=== PATIENT | female | born 1980 | race Two or more races ===

== ENCOUNTER 2019-01-20 03:51 | Observation (INO) | payer OTHER ==
--- NOTE | 2019-01-20 04:32 | PDOC ---
History of Present Illness - General Chief Complaint: Syncope/Near Syncope Stated Complaint: PAIN IN BOTH HANDS, PASSED OUT TWICE Time Seen by Provider: 01/20/19 04:18 History Source: Patient Exam Limitations: No Limitations - History of Present Illness Initial Comments: 01/20/19 04:35 This is a 38 her old female who has history of pain in her hands secondary to carpal tunnel syndrome and she got up to go to the bathroom early this morning when she was in the bathroom she reached her hands above her head to call her hair with her fingers and the next thing she knew she woke up on the floor. Her said he heard a bang and found her lying on the floor. Patient helped her up and tried to get her back to bed where she again passed out. Patient said she did not feel dizzy, lightheaded or did not know she was going down and she said she just woke up on the floor with her there. Patient denies history of passing out in the past. Allergies: None Past Medical History: none Social history: Lives with family. No smoking. No alcohol. No illicit drugs. Surgical history: None General: No fevers or chills, no weakness, no weight loss HEENT: No change in vision. No sore throat,. No ear pain CardioVascular: no chest discomfort. No shortness of breath Respiratory:No cough, or wheezing. Gastrointestinal: no nausea, vomiting, diarrhea or constipation, No rectal bleeding Genitourinary: No dysuria, hematuria, or frequency Musculoskeletal: No joint or muscle pain or swelling Neurologic: No headache, vertigo, syncope as per history of present illness Psychiatric: nor depression Skin: No rashes or easy bruising Endocrine: no increased thirst or abnormal weight change Allergic: no skin or latex allergy All other systems reviewed and normal Exam: General: Well-nourished well-developed individual, no acute distress HEENT: Throat: Normal, tonsils normal, no erythema or exudate Neck: Supple, no meningeal signs, no lymphadenopathy Eyes::Pupils equal reactive and round, extraocular motion intact Chest: Nontender to palpation Cardiac: S1-S2 normal, regular rate and rhythm, no murmurs rubs or gallops Respiratory: Lungs clear to auscultation bilateral Abdomen: Soft, nondistended, normal bowel sounds, there is no tenderness on palpation diffusely Extremities: Warm, dry, no cyanosis, clubbing, or edema Skin: No rashes Neuro: Alert and oriented x3, CN II - XII intact, nonfocal exam with normal strength, normal sensation, normal reflexes, normal gait, Psych: Normal mood and affect Assessment and plan: This is a 38-year-old female who had a syncopal event 2 prior to arrival. Patient is otherwise healthy. Syncope workup initiated including labs, EKG and head CT. EKG showed normal sinus rhythm at a rate of 79, normal intervals no acute ST-T wave changes normal EKG. 01/20/19 05:56 Patient's workup was normal, her head CT was normal, EKG was normal, labs were normal, cardiac enzymes are normal. It is unclear as to why patient had syncopal episodes [address] her in an observation bed for further evaluation and workup. Past History - Past Medical History Allergies/Adverse Reactions: Allergies Allergy/AdvReac Type Severity Reaction Status Date / Time No Known Allergies Allergy Verified 01/20/19 03:52 Home Medications: Ambulatory Orders NK [No Known Home Medication] 01/20/19 COPD: No Other medical history: DENIES - Suicide/Smoking/Psychosocial Hx Smoking History: Never smoked Have you smoked in the past 12 months: No Information on smoking cessation initiated: No Hx Alcohol Use: No Drug/Substance Use Hx: No *Physical Exam - Vital Signs Last Vital Signs Temp Pulse Resp BP Pulse Ox 98.6 F 77 18 126/91 100 01/20/19 03:54 01/20/19 03:54 01/20/19 03:54 01/20/19 03:54 01/20/19 03:54 Moderate Sedation - Procedure Monitoring Vital Signs: Procedure Monitoring Vital Signs Temperature 98.6 F 01/20/19 03:54 Pulse Rate 77 01/20/19 03:54 Respiratory Rate 18 01/20/19 03:54 Blood Pressure 126/91 01/20/19 03:54 O2 Sat by Pulse Oximetry (%) 100 01/20/19 03:54 ED Treatment Course - LABORATORY CBC & Chemistry Diagram: 01/20/19 04:37 01/20/19 04:37 - ADDITIONAL ORDERS Additional order review: Laboratory Results 01/20/19 01/20/19 01/20/19 04:37 04:37 04:37 Sodium 138 Potassium 3.7 Chloride 105 Carbon Dioxide 27 Anion Gap 5 L BUN 11 Creatinine 0.7 Creat Clearance w eGFR 94.68 Random Glucose 89 Calcium 8.2 L Total Bilirubin 0.2 AST 38 H ALT 63 H Alkaline Phosphatase 85 Creatine Kinase Troponin I Total Protein 6.6 Albumin 3.2 L Urine Color Ltyellow Urine Appearance Clear Urine pH 6.0 Ur Specific [place] 1.015 Urine Protein Negative Urine Glucose (UA) Negative Urine Ketones Negative Urine Blood Negative Urine Nitrite Negative Urine Bilirubin Negative Urine Urobilinogen Negative Ur Leukocyte Esterase Negative Urine HCG, Qual Negative 01/20/19 01/20/19 04:35 04:35 Sodium Potassium Chloride Carbon Dioxide Anion Gap BUN Creatinine Creat Clearance w eGFR Random Glucose Calcium Total Bilirubin AST ALT Alkaline Phosphatase Creatine Kinase 64 Troponin I < 0.02 Total Protein Albumin Urine Color Urine Appearance Urine pH Ur Specific [place] Urine Protein Urine Glucose (UA) Urine Ketones Urine Blood Urine Nitrite Urine Bilirubin Urine Urobilinogen Ur Leukocyte Esterase Urine HCG, Qual 01/20/19 04:37 RBC 3.78 MCV 80.4 MCHC 34.9 RDW 13.5 MPV 8.3 Neutrophils % 53.0 Lymphocytes % 35.0 Monocytes % 8.4 Eosinophils % 3.1 Basophils % 0.5 - RADIOLOGY Radiology Studies Ordered: Category Date Time Status HEAD CT WITHOUT CONTRAST [CT] Stat CT Scan 01/20/19 04:33 Taken CHEST X-RAY PORTABLE* [RAD] Stat Radiology 01/20/19 05:55 Ordered - Medications Given in the ED: ED Medications Discontinued Medications Generic Name Dose Route Start Last Admin Trade Name Freq PRN Reason Stop Dose Admin Sodium Chloride 1,000 mls @ 1,000 mls/hr 01/20/19 04:34 01/20/19 04:44 Normal Saline - IV 01/20/19 05:33 1,000 mls/hr .Q1H ONE Administration *DC/Admit/Observation/Transfer Diagnosis at time of Disposition: Syncope Qualifiers: Syncope type: unspecified Qualified Code(s): R55 - Syncope and collapse - Discharge Dispostion Condition at time of disposition: Stable Decision to Admit order: Yes Decision to Admit order Date/Time: Decision to Admit Order Category Date Time Status Decision to Admit to Hospital Routine Admission 01/20/19 05:57 Active - Referrals - Patient Instructions - Post Discharge Activity
[2019-01-20] MEDS ORDERED: SODIUM CHLORIDE 1,000 ML IV ONE (04:34)
[2019-01-20 05:15] LABS: BASO % 0.5 % (0-2.0); EOS % 3.1 % (0-4.5); HEMATOCRIT 30.4 % (32.4-45.2); HEMOGLOBIN 10.6 GM/dL (10.7-15.3); MCH 28.1 pg (25.7-33.7); MCHC 34.9 g/dl (32.0-36.0); MEAN CELL VOLUME 80.4 fl (80-96); MEAN PLT VOLUME 8.3 fl (7.5-11.1); MONO % 8.4 % (3.8-10.2); PLATELET COUNT 251 K/MM3 (134-434); RBC 3.78 M/mm3 (3.60-5.2); RDW 13.5 % (11.6-15.6); WHITE BLOOD COUNT 3.9 K/mm3 (4.0-10.0)
[2019-01-20 05:18] LABS: URINE APPEARANCE CLEAR; URINE BILIRUBIN NEGATIVE (<2.0 mg/dL); URINE COLOR LTYELLOW; URINE GLUCOSE (UA) NEGATIVE (NEGATIVE); URINE KETONE NEGATIVE (NEGATIVE); URINE LEUK ESTERASE NEGATIVE (NEGATIVE); URINE NITRITE NEGATIVE (NEGATIVE); URINE PROTEIN NEGATIVE (NEGATIVE); URINE UROBILINOGEN NEGATIVE mg/dL (0.2-1.0)
[2019-01-20 05:39] LABS: ALBUMIN 3.2 g/dl (3.4-5.0); ALK PHOS 85 U/L (45-117); ANION GAP 5 MMOL/L (8-16); BILIRUBIN,TOTAL 0.2 mg/dL (0.2-1); BLOOD UREA NITROGEN 11 mg/dL (7-18); CALCIUM 8.2 mg/dL (8.5-10.1); CHLORIDE 105 mmol/L (98-107); CO2 27 mmol/L (21-32); CREATININE 0.7 mg/dL (0.55-1.3); GLUCOSE,RANDOM 89 mg/dL (74-106); POTASSIUM 3.7 mmol/L (3.5-5.1); SGOT/AST 38 U/L (15-37); SGPT/ALT 63 U/L (13-61); SODIUM 138 mmol/L (136-145); TOT PROT 6.6 g/dl (6.4-8.2)
[2019-01-20 08:14] VITALS: BMI 23.7
--- NOTE | 2019-01-20 09:17 | HP ---
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 Patient awoke at ~3am to urinate. She urinated, stood up, and was fixing her hair when she suddenly very weak. The next thing she knew she was waking up in the tub, having fallen into the tub when she lost consciousness. Her heard the noise and got her up from the tub. As he was walking her out of the tub the patient looked at herself in the mirror and noticed she looked pale. She was also sweating. On the way back to the bed the patient again lost consciousness. brought her to the ED. Patient is health conscious is very active and usually drinks 3L of water per day. Yesterday she was very busy with her children and housecleaning and she drank only 2 cups of water. She felt thirsty going to bed. ER course was notable for: (1) Vital signs stable (2) CT head unremarkable (3) Troponin neg x 1 Recent Travel: No PAST MEDICAL HISTORY: Bilateral carpal tunnel syndrome PAST SURGICAL HISTORY: Social History: lives with Smoking: no Alcohol: no Drugs: no Family History: Allergies No Known Allergies Allergy (Verified 01/20/19 03:52) HOME MEDICATIONS: Home Medications Medication Instructions Recorded NK [No Known Home Medication] 01/20/19 REVIEW OF SYSTEMS CONSTITUTIONAL: Absent: fever, chills, diaphoresis, generalized weakness, malaise, loss of appetite, weight change HEENT: Absent: rhinorrhea, nasal congestion, throat pain, throat swelling, difficulty swallowing, mouth swelling, ear pain, eye pain, visual changes CARDIOVASCULAR: +syncope x 2 with prodrome of weakness Absent: chest pain, syncope, palpitations, irregular heart rate, lightheadedness , peripheral edema RESPIRATORY: Absent: cough, shortness of breath, dyspnea with exertion, orthopnea, wheezing, stridor, hemoptysis GASTROINTESTINAL: Absent: abdominal pain, abdominal distension, nausea, vomiting, diarrhea, constipation, melena, hematochezia GENITOURINARY: +dehydrated, thirst Absent: dysuria, frequency, urgency, hesitancy, hematuria, flank pain, genital pain MUSCULOSKELETAL: Absent: myalgia, arthralgia, joint swelling, back pain, neck pain SKIN: Absent: rash, itching, pallor HEMATOLOGIC/IMMUNOLOGIC: Absent: easy bleeding, easy bruising, lymphadenopathy, frequent infections ENDOCRINE: Absent: unexplained weight gain, unexplained weight loss, heat intolerance, cold intolerance NEUROLOGIC: Absent: headache, focal weakness or paresthesias, dizziness, unsteady gait, seizure, mental status changes, bladder or bowel incontinence PSYCHIATRIC: Absent: anxiety, depression, suicidal or homicidal ideation, hallucinations. PHYSICAL EXAMINATION Vital Signs - 24 hr 01/20/19 01/20/19 03:54 08:00 Temperature 98.6 F 98.6 F Pulse Rate 77 77 Respiratory 18 18 Rate Blood Pressure 126/91 126/91 O2 Sat by Pulse 100 99 Oximetry (%) GENERAL: Awake, alert, and fully oriented, in no acute distress. HEAD: Normal with no signs of trauma. EYES: Pupils equal, round and reactive to light, extraocular movements intact, sclera anicteric, conjunctiva clear. No lid lag. EARS, NOSE, THROAT: Ears normal, nares patent, oropharynx clear without exudates. Moist mucous membranes. NECK: Normal range of motion, supple without lymphadenopathy, JVD, or masses. LUNGS: Breath sounds equal, clear to auscultation bilaterally. No wheezes, and no crackles. No accessory muscle use. HEART: Regular rate and rhythm, normal S1 and S2 without murmur, rub or gallop. ABDOMEN: Soft, nontender, not distended, normoactive bowel sounds, no guarding, no rebound, no masses. No hepatomegaly or splenomegaly. MUSCULOSKELETAL: Normal range of motion at all joints. No bony deformities or tenderness. No CVA tenderness. UPPER EXTREMITIES: 2+ pulses, warm, well-perfused. No cyanosis. No clubbing. No peripheral edema. LOWER EXTREMITIES: 2+ pulses, warm, well-perfused. No calf tenderness. No peripheral edema. NEUROLOGICAL: Cranial nerves II-XII intact. Normal speech. Normal gait. PSYCHIATRIC: Cooperative. Good eye contact. Appropriate mood and affect. SKIN: Warm, dry, normal turgor, no rashes or lesions noted, normal capillary refill. Laboratory Results - last 24 hr 01/20/19 01/20/19 01/20/19 04:35 04:35 04:37 WBC 3.9 L RBC 3.78 Hgb 10.6 L Hct 30.4 L MCV 80.4 MCH 28.1 MCHC 34.9 RDW 13.5 Plt Count 251 MPV 8.3 Absolute Neuts (auto) 2.1 Neutrophils % 53.0 Lymphocytes % 35.0 Monocytes % 8.4 Eosinophils % 3.1 Basophils % 0.5 Nucleated RBC % 0 Sodium Potassium Chloride Carbon Dioxide Anion Gap BUN Creatinine Creat Clearance w eGFR Random Glucose Calcium Total Bilirubin AST ALT Alkaline Phosphatase Creatine Kinase 64 Troponin I < 0.02 Total Protein Albumin Urine Color Urine Appearance Urine pH Ur Specific [place] Urine Protein Urine Glucose (UA) Urine Ketones Urine Blood Urine Nitrite Urine Bilirubin Urine Urobilinogen Ur Leukocyte Esterase Urine HCG, Qual 01/20/19 01/20/19 01/20/19 04:37 04:37 04:37 WBC RBC Hgb Hct MCV MCH MCHC RDW Plt Count MPV Absolute Neuts (auto) Neutrophils % Lymphocytes % Monocytes % Eosinophils % Basophils % Nucleated RBC % Sodium 138 Potassium 3.7 Chloride 105 Carbon Dioxide 27 Anion Gap 5 L BUN 11 Creatinine 0.7 Creat Clearance w eGFR 94.68 Random Glucose 89 Calcium 8.2 L Total Bilirubin 0.2 AST 38 H ALT 63 H Alkaline Phosphatase 85 Creatine Kinase Troponin I Total Protein 6.6 Albumin 3.2 L Urine Color Ltyellow Urine Appearance Clear Urine pH 6.0 Ur Specific [place] 1.015 Urine Protein Negative Urine Glucose (UA) Negative Urine Ketones Negative Urine Blood Negative Urine Nitrite Negative Urine Bilirubin Negative Urine Urobilinogen Negative Ur Leukocyte Esterase Negative Urine HCG, Qual Negative ASSESSMENT/PLAN: 38 year-old female with a PMH significant for bilateral carpal tunnel syndrome. Placed on observation for syncope x 2. Syncope --troponins neg x 2, third pending --ECG: not suggestive of ischemic event --CXR: unremarkable --CT head: unremarkable --US carotids: unremarkable --Echo: pending --telemetry monitoring --orthostatics --TSH pending --cardiology consult Visit type - Emergency Visit Emergency Visit: Yes ED Registration Date: 01/20/19 Care time: The patient presented to the Emergency Department on the above date and was hospitalized for further evaluation of their emergent condition. - New Patient This patient is new to me today: Yes Date on this admission: 01/20/19 - Critical Care Critical Care patient: No
[2019-01-20 10:41] LABS: MAGNESIUM 1.9 mg/dL (1.8-2.4); PHOSPHOROUS 2.9 mg/dl (2.5-4.9)
--- NOTE | 2019-01-20 12:02 | CON.CARD ---
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 she was in the bathroom she reached her hands above her head to call her hair with her fingers and the next thing she knew she woke up on the floor. Her said he heard a bang and found her lying on the floor. Patient helped her up and tried to get her back to bed where she again passed out. Patient said she did not feel dizzy, lightheaded or did not know she was going down and she said she just woke up on the floor with her there. Patient denies history of passing out in the past. - History Source History Provided By: Patient, Medical Record - Past Medical History ...LMP: 01/18/19 ...: No - Alcohol/Substance Use Hx Alcohol Use: No - Smoking History Smoking history: Never smoked Have you smoked in the past 12 months: No Aproximately how many cigarettes per day: 0 Home Medications - Allergies Allergies/Adverse Reactions: Allergies Allergy/AdvReac Type Severity Reaction Status Date / Time No Known Allergies Allergy Verified 01/20/19 03:52 - Home Medications Home Medications: Ambulatory Orders NK [No Known Home Medication] 01/20/19 Review of Systems - Review of Systems Constitutional: reports: No Symptoms Eyes: reports: No Symptoms HENT: reports: No Symptoms Neck: reports: No Symptoms Cardiovascular: reports: No Symptoms Gastrointestinal: reports: No Symptoms Genitourinary: reports: No Symptoms Breasts: reports: No Symptoms Reported Musculoskeletal: reports: No Symptoms Integumentary: reports: No Symptoms Neurological: reports: Syncope Endocrine: reports: No Symptoms Hematology/Lymphatic: reports: No Symptoms Psychiatric: reports: No Symptoms Vital Signs: Vital Signs Temperature 98.6 F 01/20/19 08:00 Pulse Rate 77 01/20/19 08:00 Respiratory Rate 18 01/20/19 08:00 Blood Pressure 126/91 01/20/19 08:00 O2 Sat by Pulse Oximetry (%) 99 01/20/19 08:00 Constitutional: Yes: Well Nourished, No Distress, Calm Eyes: Yes: WNL, Conjunctiva Clear, EOM Intact HENT: Yes: WNL, Atraumatic, Normocephalic Neck: Yes: WNL, Supple, Trachea Midline Respiratory: Yes: WNL, Regular, CTA Bilaterally Gastrointestinal: Yes: WNL, Normal Bowel Sounds Renal/: Yes: WNL Cardiovascular: Yes: WNL, Regular Rate and Rhythm Musculoskeletal: Yes: WNL Extremities: Yes: WNL Integumentary: Yes: WNL Neurological: Yes: WNL, Alert, Oriented ...Motor Strength: WNL Psychiatric: Yes: WNL, Alert, Oriented - Other Data Labs, Other Data: CBC, BMP 01/20/19 04:37 01/20/19 04:37 Troponin, BNP 01/20/19 01/20/19 04:35 10:00 Troponin I < 0.02 < 0.03 Troponin, BNP 01/20/19 01/20/19 04:35 10:00 Troponin I < 0.02 < 0.03 Laboratory Tests 01/20/19 01/20/19 01/20/19 04:35 04:35 04:37 WBC 3.9 L RBC 3.78 Hgb 10.6 L Hct 30.4 L MCV 80.4 MCH 28.1 MCHC 34.9 RDW 13.5 Plt Count 251 MPV 8.3 Absolute Neuts (auto) 2.1 Neutrophils % 53.0 Lymphocytes % 35.0 Monocytes % 8.4 Eosinophils % 3.1 Basophils % 0.5 Nucleated RBC % 0 Sodium Potassium Chloride Carbon Dioxide Anion Gap BUN Creatinine Creat Clearance w eGFR Random Glucose Calcium Phosphorus Magnesium Total Bilirubin AST ALT Alkaline Phosphatase Creatine Kinase 64 Troponin I < 0.02 Total Protein Albumin Triglycerides Cholesterol Total LDL Cholesterol HDL Cholesterol Urine Color Urine Appearance Urine pH Ur Specific [place] Urine Protein Urine Glucose (UA) Urine Ketones Urine Blood Urine Nitrite Urine Bilirubin Urine Urobilinogen Ur Leukocyte Esterase Urine HCG, Qual 01/20/19 01/20/19 01/20/19 04:37 04:37 04:37 WBC RBC Hgb Hct MCV MCH MCHC RDW Plt Count MPV Absolute Neuts (auto) Neutrophils % Lymphocytes % Monocytes % Eosinophils % Basophils % Nucleated RBC % Sodium 138 Potassium 3.7 Chloride 105 Carbon Dioxide 27 Anion Gap 5 L BUN 11 Creatinine 0.7 Creat Clearance w eGFR 94.68 Random Glucose 89 Calcium 8.2 L Phosphorus Magnesium Total Bilirubin 0.2 AST 38 H ALT 63 H Alkaline Phosphatase 85 Creatine Kinase Troponin I Total Protein 6.6 Albumin 3.2 L Triglycerides Cholesterol Total LDL Cholesterol HDL Cholesterol Urine Color Ltyellow Urine Appearance Clear Urine pH 6.0 Ur Specific [place] 1.015 Urine Protein Negative Urine Glucose (UA) Negative Urine Ketones Negative Urine Blood Negative Urine Nitrite Negative Urine Bilirubin Negative Urine Urobilinogen Negative Ur Leukocyte Esterase Negative Urine HCG, Qual Negative 01/20/19 01/20/19 01/20/19 10:00 10:00 10:00 WBC RBC Hgb Hct MCV MCH MCHC RDW Plt Count MPV Absolute Neuts (auto) Neutrophils % Lymphocytes % Monocytes % Eosinophils % Basophils % Nucleated RBC % Sodium Potassium Chloride Carbon Dioxide Anion Gap BUN Creatinine Creat Clearance w eGFR Random Glucose Calcium Phosphorus 2.9 Magnesium 1.9 Total Bilirubin AST ALT Alkaline Phosphatase Creatine Kinase Troponin I < 0.03 Total Protein Albumin Triglycerides 65 Cholesterol 131 Total LDL Cholesterol 80 HDL Cholesterol 38 L Urine Color Urine Appearance Urine pH Ur Specific [place] Urine Protein Urine Glucose (UA) Urine Ketones Urine Blood Urine Nitrite Urine Bilirubin Urine Urobilinogen Ur Leukocyte Esterase Urine HCG, Qual Imaging - Results Chest X-ray: Image Reviewed (wnl) EKG: Image Reviewed (sr wnl) Other: Image Reviewed (telemetry wnl) Problem List - Problems (1) Syncope Code(s): R55 - SYNCOPE AND COLLAPSE Qualifiers: Syncope type: unspecified Qualified Code(s): R55 - Syncope and collapse Assessment/Plan Syncope ?micturition syncope nl ekg , c. duplex and ce ECHO pending Plan Neurology evaluation ECHO ST
[2019-01-20] MEDS ORDERED: SODIUM CHLORIDE 1,000 ML IV STA (12:57)
--- NOTE | 2019-01-20 17:39 | DS ---
Physical Exam: SUBJECTIVE: Patient seen and examined OBJECTIVE: Vital Signs Period Temp Pulse Resp BP Sys/Ventura Pulse Ox Last 24 Hr 97.7 F-98.6 F 74-88 16-18 93-126/62-91 99-100 PHYSICAL EXAM GENERAL: The patient is awake, alert, and fully oriented, in no acute distress. HEAD: Normal with no signs of trauma. EYES: PERRL, extraocular movements intact, sclera anicteric, conjunctiva clear. ENT: Ears normal, nares patent, oropharynx clear without exudates, moist mucous membranes. NECK: Trachea midline, full range of motion, supple. LUNGS: Breath sounds equal, clear to auscultation bilaterally, no wheezes, no crackles, no accessory muscle use. HEART: Regular rate and rhythm, S1, S2 without murmur, rub or gallop. ABDOMEN: Soft, nontender, nondistended, normoactive bowel sounds, no guarding, no rebound, no hepatosplenomegaly, no masses. EXTREMITIES: 2+ pulses, warm, well-perfused, no edema. NEUROLOGICAL: Cranial nerves II through XII grossly intact. Normal speech, gait not observed. PSYCH: Normal mood, normal affect. SKIN: Warm, dry, normal turgor, no rashes or lesions noted. LABS Laboratory Results - last 24 hr 01/20/19 01/20/19 01/20/19 04:35 04:35 04:37 WBC 3.9 L RBC 3.78 Hgb 10.6 L Hct 30.4 L MCV 80.4 MCH 28.1 MCHC 34.9 RDW 13.5 Plt Count 251 MPV 8.3 Absolute Neuts (auto) 2.1 Neutrophils % 53.0 Lymphocytes % 35.0 Monocytes % 8.4 Eosinophils % 3.1 Basophils % 0.5 Nucleated RBC % 0 Sodium Potassium Chloride Carbon Dioxide Anion Gap BUN Creatinine Creat Clearance w eGFR Random Glucose Calcium Phosphorus Magnesium Ferritin Total Bilirubin AST ALT Alkaline Phosphatase Creatine Kinase 64 Troponin I < 0.02 Total Protein Albumin Triglycerides Cholesterol Total LDL Cholesterol HDL Cholesterol TSH Urine Color Urine Appearance Urine pH Ur Specific [place] Urine Protein Urine Glucose (UA) Urine Ketones Urine Blood Urine Nitrite Urine Bilirubin Urine Urobilinogen Ur Leukocyte Esterase Urine HCG, Qual 01/20/19 01/20/19 01/20/19 04:37 04:37 04:37 WBC RBC Hgb Hct MCV MCH MCHC RDW Plt Count MPV Absolute Neuts (auto) Neutrophils % Lymphocytes % Monocytes % Eosinophils % Basophils % Nucleated RBC % Sodium 138 Potassium 3.7 Chloride 105 Carbon Dioxide 27 Anion Gap 5 L BUN 11 Creatinine 0.7 Creat Clearance w eGFR 94.68 Random Glucose 89 Calcium 8.2 L Phosphorus Magnesium Ferritin Total Bilirubin 0.2 AST 38 H ALT 63 H Alkaline Phosphatase 85 Creatine Kinase Troponin I Total Protein 6.6 Albumin 3.2 L Triglycerides Cholesterol Total LDL Cholesterol HDL Cholesterol TSH Urine Color Ltyellow Urine Appearance Clear Urine pH 6.0 Ur Specific [place] 1.015 Urine Protein Negative Urine Glucose (UA) Negative Urine Ketones Negative Urine Blood Negative Urine Nitrite Negative Urine Bilirubin Negative Urine Urobilinogen Negative Ur Leukocyte Esterase Negative Urine HCG, Qual Negative 01/20/19 01/20/19 01/20/19 09:55 10:00 10:00 WBC RBC Hgb Hct MCV MCH MCHC RDW Plt Count MPV Absolute Neuts (auto) Neutrophils % Lymphocytes % Monocytes % Eosinophils % Basophils % Nucleated RBC % Sodium Potassium Chloride Carbon Dioxide Anion Gap BUN Creatinine Creat Clearance w eGFR Random Glucose Calcium Phosphorus 2.9 Magnesium 1.9 Ferritin 67.9 Total Bilirubin AST ALT Alkaline Phosphatase Creatine Kinase Troponin I Total Protein Albumin Triglycerides 65 Cholesterol 131 Total LDL Cholesterol 80 HDL Cholesterol 38 L TSH 1.66 Urine Color Urine Appearance Urine pH Ur Specific [place] Urine Protein Urine Glucose (UA) Urine Ketones Urine Blood Urine Nitrite Urine Bilirubin Urine Urobilinogen Ur Leukocyte Esterase Urine HCG, Qual 01/20/19 10:00 WBC RBC Hgb Hct MCV MCH MCHC RDW Plt Count MPV Absolute Neuts (auto) Neutrophils % Lymphocytes % Monocytes % Eosinophils % Basophils % Nucleated RBC % Sodium Potassium Chloride Carbon Dioxide Anion Gap BUN Creatinine Creat Clearance w eGFR Random Glucose Calcium Phosphorus Magnesium Ferritin Total Bilirubin AST ALT Alkaline Phosphatase Creatine Kinase Troponin I < 0.03 Total Protein Albumin Triglycerides Cholesterol Total LDL Cholesterol HDL Cholesterol TSH Urine Color Urine Appearance Urine pH Ur Specific [place] Urine Protein Urine Glucose (UA) Urine Ketones Urine Blood Urine Nitrite Urine Bilirubin Urine Urobilinogen Ur Leukocyte Esterase Urine HCG, Qual HOSPITAL COURSE: Date of Admission:01/20/19 Date of Discharge: 01/20/19 Pre hospital course 38 year-old with a PMH significant for bilateral carpal tunnel syndrome presented to the ED 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 Patient awoke at ~3am to urinate. She urinated, stood up, and was fixing her hair when she suddenly very weak. The next thing she knew she was waking up in the tub, having fallen into the tub when she lost consciousness. Her heard the noise and got her up from the tub. As he was walking her out of the tub the patient looked at herself in the mirror and noticed she looked pale. She was also sweating. On the way back to the bed the patient again lost consciousness. brought her to the ED. Patient is health conscious is very active and usually drinks 3L of water per day. Yesterday she was very busy with her children and housecleaning and she drank only 2 cups of water. She felt thirsty going to bed. ER course (1) Vital signs stable (2) CT head unremarkable (3) Troponin neg x 1 Subsequent hospital course 38 year-old female with a PMH significant for bilateral carpal tunnel syndrome. Placed on observation for syncope x 2. Syncope likely secondary to low volume state --likely vasovagal episode with prodrome --troponins neg x 3; ACS ruled out --ECG: not suggestive of ischemic event --CXR: unremarkable --CT head: unremarkable --US carotids: unremarkable --Stress echo: normal study --telemetry monitoring: no events --orthostatics: BP low but not orthostatic; BP improved with IV fluids --TSH wnl Minutes to complete discharge: 35 Discharge Summary Reason For Visit: SYNCOPE Current Active Problems Syncope (Acute) Condition: Improved - Instructions Diet, Activity, Other Instructions: Stay well-hydrated, drink plenty of fluids! Return to the emergency department for any new or worsening symptoms. Disposition: HOME - Home Medications Comprehensive Discharge Medication List: Ambulatory Orders NK [No Known Home Medication] 01/20/19 This patient is new to me today: Yes Date on this admission: 01/20/19 Emergency Visit: Yes ED Registration Date: 01/20/19 Care time: The patient presented to the Emergency Department on the above date and was hospitalized for further evaluation of their emergent condition. Critical Care patient: No - Discharge Referral Referred to [facility] No
--- NOTE | 2019-01-20 17:57 | ECHO ---
Name: FAITHCLAUDE Exam:Adult Echocardiogram Study Date: 01/20/2019 10:01 AM Age: 38 yrs Reason For Study: SYNCOPE Height: 66 in Weight: 148 lb BSA: 1.8 m2 MMode/2D Measurements & Calculations IVSd: 0.95 cm Ao root diam: 2.9 cm LVIDd: 4.3 cm LA dimension: 3.2 cm LVIDs: 2.7 cm LVPWd: 1.0 cm EDV(Teich): 81.1 ml LVOT diam: 2.0 cm ESV(Teich): 28.1 ml Doppler Measurements & Calculations MV E max letty: 76.8 cm/sec MV A max letty: 67.2 cm/sec MV E/A: 1.1 Procedure A complete two-dimensional transthoracic echocardiogram was performed (2D, M-mode, Doppler and color flow Doppler). Left Ventricle The left ventricle is normal in size. Left ventricular systolic function is normal. Ejection Fraction = 55- 60%. No regional wall motion abnormalities noted. Right Ventricle The right ventricle is normal size. The right ventricular systolic function is normal. RV systolic TD I is 14 cm/s. Atria The left atrial size is normal. Right atrial size is normal. Mitral Valve There is mild mitral annular calcification. There is no mitral regurgitation noted. Tricuspid Valve The tricuspid valve is normal in structure and function. No tricuspid regurgitation. Aortic Valve The aortic valve is normal in structure and function. No aortic regurgitation is present. Pulmonic Valve The pulmonic valve is not well visualized. Great Vessels The aortic root is normal size. Pericardium/Pleura There is no pericardial effusion. Interpretation Summary The left ventricle is normal in size. Left ventricular systolic function is normal. No regional wall motion abnormalities noted. Ejection Fraction = 55-60%. The right ventricular systolic function is normal. The left atrial size is normal. Right atrial size is normal. There is mild mitral annular calcification. No significant valvular regurgitations are seen There is no pericardial effusion. Previous study is not available for comparison Timur Driscoll MD 01/20/2019 05:56 PM
[2019-01-20 18:10] VITALS: BP 100/66; PULSE 82; TEMP 97.8
--- NOTE | 2019-01-20 18:14 | ECHO ---
Name: FAITH ITZ Exam:Dobutamine Stress Echocardiogram Study Date: 01/20/2019 03:18 PM Age: 38 yrs Reason For Study: PASSED OUT Height: 66 in Weight: 148 lb BSA: 1.8 m2 Procedure Details: Exercise Stress Echocardiogram with 2D imaging. Baseline echocardiogram was performed on 01/20/19. Stress Comments Resting blood pressure was within normal limits. Normal resting electrocardiogram. Normal sinus rhythm. A treadmill exercise test according to Bryan protocol was performed. Maximum Heart Rate achieved was 95-100% of maximum age-predicted heart rate. Nonspecific ST segment abnormalities. Total Stress Time was 9-10 minutes. Left Ventricle The left ventricle is grossly normal size. There is normal left ventricular wall thickness. The left ventricle is normal in structure and function. The left ventricular ejection fraction is normal. Exercise Echocardiogram Negative exercise stress echocardiogram, adequate by heart rate criteria, without symptoms, diagnosti c EKG changes or echocardiographic evidence of ischemia. Interpretation Summary Negative exercise stress echocardiogram, adequate by heart rate criteria, without symptoms, diagnosti c EKG changes or echocardiographic evidence of ischemia 1. Normal augmentation of all myocardial segments. There is no clinical, electrocardiographic or echocardiographic evidence of exercise induced myocardial ischemia. 2. Patient remained asymptomatic Reading Physician: Timur Driscoll MD 01/20/2019 06:14 PM
[2019-01-20 18:34] LABS: URINE APPEARANCE CLEAR; URINE BILIRUBIN NEGATIVE (NEGATIVE); URINE COLOR YELLOW; URINE GLUCOSE (UA) NEGATIVE (NEGATIVE); URINE KETONE NEGATIVE (NEGATIVE); URINE LEUK ESTERASE NEGATIVE (NEGATIVE); URINE NITRITE NEGATIVE (NEGATIVE); URINE PROTEIN NEGATIVE (NEGATIVE); URINE UROBILINOGEN 0.2 (0.2-1.0)
[2019-01-20 19:58] LABS: COCAINE, UR NEGATIVE ng/ml (CUTOFF=300); METHADONE, UR NEGATIVE ng/ml (CUTOFF=300); OPIATES, URI NEGATIVE ng/ml (CUTOFF=300); PHENCYCLIDINE,URINE NEGATIVE ng/ml (CUTOFF=25); URINE AMPHETAMINES NEGATIVE ng/ml (CUTOFF=500); URINE BARBITURATES NEGATIVE ng/ml (CUTOFF=200); URINE BENZODIAZEPINES NEGATIVE ng/ml (CUTOFF=200)
[2019-01-20 20:27] LABS: URINE BACTERIA 1+ /hpf (NEGATIVE); URINE RBC 0-2 /hpf (0-3); URINE WBC 0-1 (0-5)
--- NOTE | 2019-01-20 22:52 | EKG ---
Test Reason : Blood Pressure : / mmHG Vent. Rate : 079 BPM Atrial Rate : 079 BPM P-R Int : 180 ms QRS Dur : 082 ms QT Int : 386 ms P-R-T Axes : 069 083 073 degrees QTc Int : 442 ms NORMAL SINUS RHYTHM NORMAL ECG NO PREVIOUS ECGS AVAILABLE Confirmed by EDER CURRIE, MANUELITO ([id number]) on 01/20/2019 10:52:29 PM Referred By: MD RÍOS Confirmed By:MANUELITO GAINES MD
[2019-01-21 08:06] LABS: SERUM IRON SATURATION 11 % (15-55); TOTAL IRON BINDING CAPACITY 323 ug/dL (250-450); UIBC 286 ug/dL (131-425)
== END 2019-01-20 18:30 | disposition home or self-care (01) ==
LOC: FER 03:51 → FM/S 05:57 → UNDOADMOB 06:02
PROVIDERS: ADMIT Internal Medicine; ATTEND Nurse Practitioner Acute Care
PROC: 3E0337Z Introduction of Electrolytic and Water Balance Substance into Peripheral Vein, Percutaneous Approach (ICD-10-PCS; principal; 2019-01-20)
DX: R55 Syncope and collapse (principal); G56.03 Carpal tunnel syndrome, bilateral upper limbs
CPT/HCPCS: 70450-TC; 71046-TC-FY; 80053; 80061; 80307; 81003; 81015; 82550; 82728; 83540; 83550; 83735; 84100; 84443; 84484; 84703; 85025; 87086; 93005; 93306-TC; 93351; 93880-TC; 99284-25; G0378; J7030